=== PATIENT | male | born 1995 | race Caucasian/White ===

== ENCOUNTER → 2017-01-09 | Outpatient (CLI) | payer OTHER ==
--- NOTE | 2017-01-09 14:07 | DIAGNOSTIC IMAGING REPORT ---
LEFT KNEE 4 VIEWS HISTORY: LEFT KNEE PAIN COMPARISON: None. FINDINGS: There is no fracture or dislocation. No significant soft tissue swelling. Evidence for prior ACL repair. The hardware appears intact. Small knee effusion. A 3 mm intra-articular loose body adjacent to the tibial spines. IMPRESSION: 1. No fractures within the left knee. 2. Prior ACL repair. 3. Small knee effusion. 4. A 3 mm intra-articular loose body adjacent to the tibial spines. Electronically signed by: Og Donis M.D. 01/09/2017 2:06 PM Dictated Date/Time: 01/09/2017 2:05 PM
== END | disposition home or self-care (01) ==
LOC: C.RDSM 13:45
PROVIDERS: ATTEND Physician Assistant
DX: M25.562 Pain in left knee (principal); M25.462 Effusion, left knee; Z98.890 Other specified postprocedural states

== ENCOUNTER → 2017-01-17 | Outpatient (CLI) | payer OTHER ==
--- NOTE | 2017-01-17 09:12 | DIAGNOSTIC IMAGING REPORT ---
L LOWER EXT JOINT WITHOUT CLINICAL HISTORY: LT KNEE PAIN pain TECHNIQUE: MRI multi axial acquisition COMPARISON STUDY: 08/15/2014 FINDINGS: Signal characteristics the osseous structures indicate a minimal contusion anterior aspect medial tibial plateau. There are operative changes consistent with a prior anterior cruciate ligament repair. There is a focus of fibrous tissue medially anterior to the tibial spines suggesting a potential small cyclops lesion. Anterior and posterior cruciate ligaments are intact. There is a small joint effusion. The patellar groove is somewhat shallow. There is a partial tear medial patellar retinaculum. The quadriceps tendon is intact. The menisci demonstrates medial and lateral menisci to be unremarkable. There is a small partial tear medial collateral ligament IMPRESSION: 1. 1. Operative changes consistent with prior anterior cruciate ligament repair. 2. Small focus of granulation tissue immediately anterior to the tibial spines suggesting a developing cyclops-type lesion. 3. Small contusion anterior aspect medial tibial plateau. 4. Small partial tear medial collateral ligament. 5. Small joint effusion with partial tear medial patellar retinaculum. 6. Moderately shallow patellofemoral groove. The above report was generated using voice recognition software. It may contain grammatical, syntax or spelling errors. Electronically signed by: Monty Michaels M.D. 01/17/2017 9:11 AM Dictated Date/Time: 01/17/2017 8:57 AM
== END | disposition home or self-care (01) ==
LOC: C.MRI 07:39
PROVIDERS: ATTEND Physician Assistant
DX: M25.562 Pain in left knee (principal); L92.8 Other granulomatous disorders of the skin and subcutaneous tissue; T14.8XXA Other injury of unspecified body region, initial encounter; X58.XXXA Exposure to other specified factors, initial encounter; S83.412A Sprain of medial collateral ligament of left knee, initial encounter; M25.462 Effusion, left knee; S83.242A Other tear of medial meniscus, current injury, left knee, initial encounter